=== PATIENT | female | born 1930 | race Caucasian/White ===

== ENCOUNTER 2017-08-25 04:27 | Observation (INO) | payer MEDICARE ==
--- NOTE | 2017-08-25 04:50 | ED PDOC ---
Arrival/HPI - General Chief Complaint: Palpitations Time Seen by Provider: 08/25/17 04:33 Historian: Patient - History of Present Illness Narrative History of Present Illness (Text): 08/25/17 04:50 Linnea Gonzalez is an 86 year old female, whose past medical history includes hypertension, hypothyroidism, and goiter, who presents to the Emergency department complaining of palpitations. Patient states she has been experiencing intermittent racing heart rate for the past 3-4 days. Patient states her hear rate goes up to 110 bpm at times and she became concerned, prompting her visit to the Emergency department. Patient states she took Aspirin 81mg prior to arrival. Patient denies any fever, chills, chest pain, shortness of breath, nausea, vomiting, diarrhea, urinary symptoms, back pain, neck pain, headache, dizziness, or any other complaints. Symptom Onset: Gradual Symptom Course: Unchanged Activities at Onset: Light Context: Home Past Medical History - Provider Review Nursing Documentation Reviewed: Yes - Infectious Disease Hx of Infectious Diseases: None - Reproductive Menopause: Yes - Cardiac Hx Cardiac Arrhythmia: Yes Hx Hypertension: Yes - Pulmonary Hx Respiratory Disorders: No - Neurological Hx Neurological Disorder: No - HEENT Hx HEENT Disorder: No - Renal Hx Renal Disorder: No - Endocrine/Metabolic Hx Hyperthyroidism: Yes - Hematological/Oncological Hx Blood Disorders: No - Integumentary Hx Dermatological Disorder: No - Musculoskeletal/Rheumatological Hx Musculoskeletal Disorders: No - Gastrointestinal Hx Gastrointestinal Disorders: No - Genitourinary/Gynecological Hx Genitourinary Disorders: No - Psychiatric Hx Psychophysiologic Disorder: No Hx Depression: No Hx Emotional Abuse: No Hx Physical Abuse: No Hx Substance Use: No - Suicidal Assessment Feels Threatened In Home Enviroment: No Family/Social History - Physician Review Nursing Documentation Reviewed: Yes Family/Social History: Unknown Family HX Smoking Status: Never Smoked Hx Alcohol Use: No Hx Substance Use: No Allergies/Home Meds Allergies/Adverse Reactions: Allergies No Known Allergies Allergy (Verified 08/25/17 04:37) Home Medications: Home Meds Medication Instructions Recorded Confirmed Metoprolol Succinate [Metoprolol 1 tab PO BID 08/01/13 08/25/17 Succinate] Verapamil [Verapamil] 1 tab PO DAILY 08/01/13 08/25/17 Furosemide [Lasix] 20 mg PO DAILY 08/25/17 08/25/17 Methimazole [Tapazole] 5 mg PO DAILY 08/25/17 08/25/17 Review of Systems - Physician Review All systems were reviewed & negative as marked: Yes - Review of Systems Constitutional: Normal. absent: Fevers Eyes: Normal ENT: Normal Respiratory: Normal. absent: SOB, Cough Cardiovascular: Palpitations Gastrointestinal: Normal. absent: Abdominal Pain, Diarrhea, Nausea, Vomiting Genitourinary Female: Normal. absent: Dysuria, Frequency, Hematuria, Urine Output Changes Musculoskeletal: Normal. absent: Back Pain, Neck Pain Skin: Normal. absent: Rash Neurological: Normal. absent: Headache, Dizziness Endocrine: Normal Hemo/Lymphatic: Normal Psychiatric: Normal Physical Exam Vital Signs Reviewed: Yes Vital Signs Temp Pulse Resp BP Pulse Ox 08/25/17 05:56 98.8 F 94 H 20 128/70 94 L Temperature: Afebrile Blood Pressure: Normal Pulse: Regular Respiratory Rate: Normal Appearance: Positive for: Well-Appearing, Non-Toxic, Comfortable Pain Distress: None Mental Status: Positive for: Alert and Oriented X 3 - Systems Exam Head: Present: Atraumatic, Normocephalic Pupils: Present: PERRL Extroacular Muscles: Present: EOMI Conjunctiva: Present: Normal Mouth: Present: Moist Mucous Membranes Neck: Present: Normal Range of Motion, Other (Goiter). No: Meningeal Signs, MIDLINE TENDERNESS, Paraspinal Tenderness Respiratory/Chest: Present: Good Air Exchange, Decreased Breath Sounds (left lung field). No: Respiratory Distress, Accessory Muscle Use Cardiovascular: Present: Regular Rate and Rhythm, Normal S1, S2. No: Murmurs Abdomen: Present: Normal Bowel Sounds. No: Tenderness, Distention, Peritoneal Signs Back: Present: Normal Inspection. No: CVA Tenderness, Midline Tenderness, Paraspinal Tenderness Upper Extremity: Present: Normal Inspection. No: Cyanosis, Edema Lower Extremity: Present: Normal Inspection. No: Edema Neurological: Present: GCS=15, CN II-XII Intact, Speech Normal Skin: Present: Warm, Dry, Normal Color. No: Rashes Psychiatric: Present: Alert, Oriented x 3, Normal Insight, Normal Concentration Medical Decision Making ED Course and Treatment: 08/25/17 04:50 Impression: 86 year old female complaining of palpitations. Plan: -- EKG -- Chest X-ray -- Labs, cardiac enzymes -- Reassess and disposition Progress Notes: Reviewed EKG, sinus tachycardia at 103 bpm. Septal infarct. Non-specific ST/T wave changes. 08/25/17 06:13 Chest X-ray shows: LIMITATIONS: The patient's head obscures a large part of the upper chest. LUNGS: Visualized portions of the lungs appear grossly clear, although note that the lungs are incompletely seen on this exam. PLEURAL SPACE: Large area of dense opacity in the left lung, highly suspicious for a large left pleural effusion. No evidence of significant right pleural effusion. HEART: Heart size is difficult to assess because of the left pleural effusion. MEDIASTINUM: Mediastinum is poorly seen. BONES/JOINTS: No definite acute bony abnormality visualized. IMPRESSION: - Limited exam, as described. - Large left pleural effusion. Cannot rule out underlying pneumonia or malignancy in the left lung. - See above for remaining findings. 08/25/17 06:38 Case was d/w who accepted to her service./ on consult.CT Chest to follow. - Lab Interpretations Lab Results: 08/25/17 05:18 08/25/17 05:18 Lab Results 08/25/17 05:18: WBC 5.4, RBC 4.61, Hgb 13.2, Hct 41.7, MCV 90.5, MCH 28.6, MCHC 31.7, RDW 14.0, Plt Count 259, MPV 9.8 08/25/17 05:18: Sodium 137, Potassium 4.3, Chloride 100, Carbon Dioxide 26, Anion Gap 15, BUN 14, Creatinine 0.8, Est GFR ( Amer) > 60, Est GFR (Non- Af Amer) > 60, Random Glucose 116 H, Calcium 8.9, Total Bilirubin 0.5, AST 32, ALT 30, Alkaline Phosphatase 56, Lactate Dehydrogenase 501, Total Creatine Kinase 64, Troponin I < 0.01 D, NT-Pro-B Natriuret Pep 521 H, Total Protein 6.9 , Albumin 3.8, Globulin 3.2, Albumin/Globulin Ratio 1.2 08/25/17 05:18: PT 12.4, INR 1.08, APTT 30.9 I have reviewed the lab results: Yes - RAD Interpretation Radiology Orders: 08/25/17 05:01 CHEST PORTABLE [RAD] [employer] Operations Manager: Radiologist - EKG Interpretation Interpreted by ED Physician: Yes Type: 12 lead EKG - Medication Orders Current Medication Orders: Discontinued Medications Furosemide (Lasix) 40 mg IVP ONCE ONE Stop: 08/25/17 06:30 - Scribe Statement The provider has reviewed the documentation as recorded by the Nora Clark Provider Scribe Attestation: All medical record entries made by the Scribe were at my direction and personally dictated by me. I have reviewed the chart and agree that the record accurately reflects my personal performance of the history, physical exam, medical decision making, and the department course for this patient. I have also personally directed, reviewed, and agree with the discharge instructions and disposition. Disposition/Present on Arrival - Present on Arrival Any Indicators Present on Arrival: No History of DVT/PE: No History of Uncontrolled Diabetes: No Urinary Catheter: No History of Decub. Ulcer: No History Surgical Site Infection Following: None - Disposition Have Diagnosis and Disposition been Completed?: Yes Diagnosis: Heart palpitations, Pleural effusion Disposition: HOSPITALIZED Disposition Time: 06:31 Patient Plan: Observation Patient Problems: Current Active Problems Problem Status Onset Heart palpitations Acute Pleural effusion Acute Condition: STABLE Forms: [employer]
[2017-08-25 05:33] LABS: HEMOGLOBIN 13.2 g/dL (12.0-16.0); MEAN CELL VOLUME 90.5 fl (80.0-105.0); MEAN CORPUSCULAR HEMOGLOBIN 28.6 pg (25.0-35.0); MEAN CORPUSCULAR HGB CONC 31.7 g/dl (31.0-37.0); MEAN PLATELET VOLUME 9.8 fl (7.0-11.0); RBC 4.61 10^6/uL (3.5-6.1); WHITE BLOOD COUNT 5.4 10^3/ul (4.5-11.0)
[2017-08-25 05:49] LABS: INR 1.08 (0.93-1.08); PARTIAL THROMBOPLASTIN TIME 30.9 Seconds (25.1-36.5); PROTHROMBIN TIME 12.4 SECONDS (9.4-12.5)
[2017-08-25 06:03] LABS: ALB/GLOB RATIO 1.2 (1.1-1.8); ALBUMIN 3.8 g/dL (3.0-4.8); ALT/SGPT 30 U/L (7-56); AST/SGOT 32 U/L (14-36); BLOOD UREA NITROGEN 14 mg/dL (7-21); CALCIUM 8.9 mg/dL (8.4-10.5); GFR AFRICAN-AMERICAN > 60; GFR NON-AFRICAN AMERICAN > 60
--- NOTE | 2017-08-25 06:12 | RAD ---
EXAM: XR Chest, 1 View EXAM DATE/TIME: 08/25/2017 5:01 AM CLINICAL HISTORY: 86 years old, female; Signs and symptoms; Shortness of breath; Additional info: Palpitations TECHNIQUE: Frontal view of the chest. COMPARISON: No relevant prior studies available. FINDINGS: LIMITATIONS: The patient's head obscures a large part of the upper chest. LUNGS: Visualized portions of the lungs appear grossly clear, although note that the lungs are incompletely seen on this exam. PLEURAL SPACE: Large area of dense opacity in the left lung, highly suspicious for a large left pleural effusion. No evidence of significant right pleural effusion. HEART: Heart size is difficult to assess because of the left pleural effusion. MEDIASTINUM: Mediastinum is poorly seen. BONES/JOINTS: No definite acute bony abnormality visualized. IMPRESSION: - Limited exam, as described. - Large left pleural effusion. Cannot rule out underlying pneumonia or malignancy in the left lung. - See above for remaining findings.
[2017-08-25 06:17] LABS: B-TYPE NATRIURETIC PEPTIDE 521 pg/mL (0-450); TROPONIN I < 0.01 ng/mL
[2017-08-25 06:41] LABS: FREE T4 0.66 ng/dL (0.78-2.19)
--- NOTE | 2017-08-25 07:44 | CT ---
EXAM: CT Chest Without Intravenous Contrast EXAM DATE/TIME: 08/25/2017 6:41 AM CLINICAL HISTORY: 86 years old, female; Signs and symptoms; Shortness of breath; Additional info: Large left pleural effusion TECHNIQUE: Axial computed tomography images of the chest without intravenous contrast. All CT scans at this facility use one or more dose reduction techniques, viz.: automated exposure control; ma/kV adjustment per patient size (including targeted exams where dose is matched to indication; i.e. head); or iterative reconstruction technique. Coronal and sagittal reformatted images were created and reviewed. COMPARISON: Recent chest radiographs of 2017-08-25, 5:18 AM FINDINGS: LIMITATIONS: Moderate respiratory motion artifact. LUNGS: Dense consolidation in the left lung, associated with air bronchograms. This could represent diffuse compressive atelectasis of the left lung, related to the large left pleural effusion, however, an underlying pneumonia is difficult to exclude. Right lung appears clear, allowing for motion artifact, with no evidence of a large right-sided infiltrate, diffuse pulmonary nodules, or a large spiculated lung mass. The portions of the left lung that are aerated appear grossly clear as well. PLEURAL SPACE: Large left pleural effusion. This appears mildly loculated/complex. No pneumothorax is seen. No evidence of significant right pleural effusion. HEART: No evidence of significant pericardial effusion. THYROID: Very large, heterogeneous masslike area of soft tissue is seen in the thoracic inlet region, which extends into the superior mediastinum on the right. This measures at least 16 x 14 cm. It is heterogeneous in density, and contains multiple scattered calcifications. It overall has well defined margins. It encircles the upper trachea and compresses it. Findings are highly suspicious for a massive thyroid goiter. BONES/JOINTS: No evidence of diffuse bony metastatic disease. SOFT TISSUES: No acute abnormality of the visualized soft tissues is seen. VASCULATURE: Exam is nondiagnostic for aortic dissection, secondary to unenhanced technique. LYMPH NODES: No evidence of diffuse lymphadenopathy. INTRAPERITONEAL SPACE: In the upper abdomen, there is irregular soft tissue density seen in the anterior fat, which is highly suspicious for omental/peritoneal metastases. IMPRESSION: - Large left pleural effusion, which appears mildly complex/loculated. - Findings in the upper abdomen which are highly suspicious for omental/peritoneal metastatic disease. This finding could be further evaluated with a dedicated CT of the abdomen and pelvis. - Findings highly suspicious for a massive thyroid goiter, measuring at least 16 cm in size. This encircles and compresses the upper trachea. - See above for remaining findings.
--- NOTE | 2017-08-25 10:55 | CARD ---
APPROVED REPORT EKG Measurement Heart [id number] <Conclusion> Sinus tachycardia Low voltage QRS Septal infarct, age undetermined Abnormal ECG
[2017-08-25 12:41] VITALS: O2SAT 97
[2017-08-25] MEDS ORDERED: Verapamil 120 mg ER Tab PO SCH (13:00)
[2017-08-25] MEDS: methIMAzole 5 MG TAB PO SCH (13:56)
[2017-08-25 16:30] VITALS: BMI 34.4
[2017-08-25] MEDS ORDERED: Pneumococcal 23-Valent Vaccine IM ONE (16:30)
[2017-08-25] MEDS ORDERED: Influenza Vaccine 60 mcg/0.5 mL SYR (4YR UP) IM ONE (16:30)
[2017-08-25] MEDS: Metoprolol Succinate 25 mg XL Tab PO SCH ×2 (17:42→22:25)
[2017-08-25] MEDS ORDERED: Metoprolol Succinate 25 mg XL Tab PO SCH (18:00)
--- NOTE | 2017-08-26 02:29 | HP ---
HISTORY OF PRESENT ILLNESS: The patient is an 86-year-old came to Emergency Room because of palpitation, mild shortness of breath, and complain of feeling a little lightheaded. The patient has multiple medical problems. She denies any fever or chills. No nausea or vomiting. No diarrhea. Cannot lay flat because of goiter and palpitation. PAST MEDICAL HISTORY: Significant for: 1. History of hyperthyroidism, currently on Tapazole, has large goiter. 2. Hypertension. 3. Hyperlipidemia. ALLERGIES: SHE IS NOT ALLERGIC TO ANY MEDICINES. MEDICATIONS AT HOME: She is on Tapazole 5 mg daily, Lasix 20 mg daily, metoprolol 25 twice a day, and verapamil 120 mg daily. SOCIAL HISTORY: Denies smoking or drinking. REVIEW OF SYSTEMS: Significant for: NECK: Large goiter. HEENT: Nonicteric sclerae. [place] conjunctivae. LUNGS: Bilateral lung diffusely decreased breath sound left more than the right. HEART: S1 and S2 audible. ABDOMEN: Soft, obese, and nontender. No rebound. No guarding. NEUROLOGIC: She is awake, alert, oriented, and able to communicate. LABORATORY DATA: WBC 5.4, hemoglobin 13, hematocrit 41, and platelet of 259. PT 12.4 and INR 1.08. Sodium 137, potassium 4.3, chloride 100, CO2 of 26, BUN 14, creatinine 0.8, and blood sugar of 116. BNP 521. T4 is 0.66. TSH is 0.04. CT scan of the chest was done that shows there is a large left pleural effusion, which appears mildly complex, loculated finding in the upper abdomen or highly suspicious for omental and peritoneal metastases, this finding could be further evaluated with CT of the abdomen and pelvis. ASSESSMENT: 1. Left pleural effusion. 2. Dysphagia secondary to goiter. 3. History of hyperthyroidism. 4. Hypertension. 5. Hyperlipidemia. PLAN: We will admit the patient on telemetry. We will diurese the patient. We will start her on verapamil. She has been started on beta-liat. Echocardiogram has been ordered. Dr. Sebastian Pennington was consulted, but the patient refused thoracentesis. We will order for CT of the abdomen and pelvis in a.m. because the patient does not want to get anything done without being discussed with her. We will followup her electrolyte and CBC in a.m. Diane Owen MD [facility] # [id number]
--- NOTE | 2017-08-26 05:58 | CON ---
DATE: 08/25/2017 PULMONARY CONSULTATION REFERRING PHYSICIAN: Diane Owen MD REASON FOR CONSULTATION: Cough, shortness of breath, upper airway obstruction, has complex left pleural effusion. HISTORY OF PRESENT ILLNESS: This is an 86-year-old female with past medical history significant for hypertension, hyperthyroid, huge goiter compressing the upper airway, cannot sleep flat, usually sleeps sitting up. Few days ago, she was seen at [facility] with leg swelling, given some Lasix, felt better. Now, comes into ER with tachypnea and tachycardia. Denying any headache. No fever, no chills. No hemoptysis. No hematemesis. No hematuria. No diarrhea. Leg swelling is better. PAST MEDICAL HISTORY: Large goiter, hyperthyroid, hypertension. FAMILY HISTORY: No significant cardiopulmonary disease reported. SOCIAL HISTORY: Nonsmoker, nondrinker. ALLERGIES: None known. MEDICATIONS: She is on Calan SR 120 mg daily, potassium 20 mEq daily, Lasix 40 mg IV twice a day, Tapazole 5 mg daily, Toprol XL 25 mg twice a day. REVIEW OF SYSTEMS: No headache. No rhinitis. Has upper airway obstruction, cannot lie flat, coughing every few minutes to clear her throat. Huge goiter. PHYSICAL EXAMINATION LUNGS: Has decreased breath sounds in the left lung. Scattered rhonchi. HEART: S1 and S2. ABDOMEN: Soft, nontender, nondistended. EXTREMITIES: There is no edema. NEUROLOGIC: Awake, alert, and follows simple commands. LABORATORY DATA: Shows hemoglobin 13.2, hematocrit 41.7, WBC of 5.4, platelets is 259. INR 1.08, PTT is 31. Sodium 137, potassium 4.3, chloride 100, bicarbonate 26, BUN 14, creatinine 0.8, glucose 116, calcium 8.9, total bili 0.45, AST 32, ALT 30, alkaline phosphatase is 56. ProBNP 521, troponin less than 0.01, albumin 3.8. T4 free is 0.6. TSH is 0.04. CAT scan of the chest is done, which shows a large left pleural effusion that seems loculated and a complex effusion. Also upper abdomen of highly suspicious for omental/peritoneal metastasis disease. There is a massive thyroid goiter which is about 16 cm of size. This encircles and compresses the upper trachea. IMPRESSION AND PLAN: Pending respiratory failure secondary to huge goiter compressing the upper trachea. The patient cannot lie flat, sleeping sitting up, also has omentum involvement with complex left pleural effusion, has to rule out malignancy. Other issues, has hypertension, hyperthyroidism with huge goiter. I had a long discussion with the patient, at least 6 of the siblings at her bedside. The patient understands the complexity of her disease; even before I saw her, she refused to do thoracentesis when Dr. Pennington approached her. I had a long discussion about the risk-benefit ratio. She claims she is 86 years old, does not want to know if she has a cancer, will not want to go through the treatment, why should do the testing. So, she has point, probably palliative consult should be called. The patient should be made DNR and DNI if she wishes to pursue that direction. She is willing to try BiPAP for me. I will place her on BiPAP 12/6 with 35% oxygen while sleeping, that may make her a little more comfortable. Understands risk-benefit ratio. We will speak to her again about further investigation and workup in the morning. Thank you and we will follow with you. Judith Tipton MD
[2017-08-26 06:49] LABS: BASO # 0.02 K/mm3 (0.0-2.0); BASO % 0.3 % (0.0-3.0); EOS % 0.2 % (1.5-5.0); GRAN # 3.95 (1.4-6.5); GRAN % 64.2 % (50.0-68.0); HEMOGLOBIN 12.6 g/dL (12.0-16.0); LYMPH # 1.3 (1.2-3.4); LYMPH % 21.6 % (22.0-35.0); MEAN CELL VOLUME 91.3 fl (80.0-105.0); MEAN CORPUSCULAR HEMOGLOBIN 28.3 pg (25.0-35.0); MEAN PLATELET VOLUME 10.4 fl (7.0-11.0); MONO # 0.8 (0.1-0.6); MONO % 13.7 % (1.0-6.0); RBC 4.46 10^6/uL (3.5-6.1); RED CELL DISTRIBUTION WIDTH 14.3 % (11.5-14.5); WHITE BLOOD COUNT 6.2 10^3/ul (4.5-11.0)
[2017-08-26 07:22] LABS: ALB/GLOB RATIO 1.3 (1.1-1.8); ALBUMIN 3.9 g/dL (3.0-4.8); ALT/SGPT 34 U/L (7-56); AST/SGOT 45 U/L (14-36); BLOOD UREA NITROGEN 18 mg/dL (7-21); CALCIUM 9.2 mg/dL (8.4-10.5); GFR AFRICAN-AMERICAN > 60; GFR NON-AFRICAN AMERICAN 59
--- NOTE | 2017-08-26 08:56 | CON ---
DATE: 08/25/2017 CARDIOLOGY CONSULTATION HISTORY OF PRESENT ILLNESS: The patient is an 86-year-old woman, who presents with palpitations for 2 days. The patient's past medical history is notable for history of goiter for many years, in which she has refused any surgical intervention. The patient has been euthyroid this entire time. She has refused any cardiac testing in the past. Currently, the patient is on beta-blockers as well as verapamil for palpitations. She was placed on Lasix because of her symptoms consistent with CHF. SOCIAL HISTORY: The patient does not smoke. REVIEW OF SYSTEMS: A 14-point review of systems was reviewed in detail. Other than dyspnea and palpitations, there were no other cardiac symptomatology. PHYSICAL EXAMINATION: VITAL SIGNS: Blood pressure 138/70, heart rate is sinus rhythm in the 90s. NECK: Negative JVD. There is marked goiter noted. LUNGS: Without rales. HEART: S1, S2. EXTREMITIES: Without edema. LABORATORY DATA AND IMAGING: EKG shows nonspecific ST-T changes. TSH is 0.04, free T4 is 0.66. ProBNP is 521. Hemoglobin is within normal limits. IMPRESSION: 1. Palpitations. 2. Marked goiter. 3. Large pleural effusion. 4. Coronary artery disease. Given these findings, we will start IV Lasix. We will obtain an echocardiogram. We will need to rule out peritoneal metastatic disease. We will obtain GI consultation. Sebastian Nicolas MD
[2017-08-26] MEDS ORDERED: Verapamil 120 mg ER Tab PO SCH (10:00)
[2017-08-26] MEDS ORDERED: Potassium Chloride 20 mEq ER Tab PO SCH (10:00)
[2017-08-26] MEDS: Metoprolol Succinate 25 mg XL Tab PO SCH (10:18)
[2017-08-26] MEDS: methIMAzole 5 MG TAB PO SCH (10:18)
[2017-08-26 12:00] VITALS: BP 122/73; PULSE 90; RESP 20; TEMP 97.6
--- NOTE | 2017-08-26 14:05 | PN ---
DATE: 08/26/2017 CARDIOLOGY FOLLOWUP SUBJECTIVE: The patient is without shortness of breath at rest. PHYSICAL EXAMINATION: VITAL SIGNS: Blood pressure is 135/72, the heart rate is in the 90s, normal sinus rhythm. NECK: Negative JVD. LUNGS: Decreased breath sounds. HEART: Reveal S1, S2. EXTREMITIES: Without change. LABORATORY DATA: Troponins are negative x2. Potassium is 4.1. Hemoglobin is 12.6. IMPRESSION: 1. Density and pleural effusion in the left lung. 2. Massive goiter, which is chronic. 3. Dyspnea. 4. Hypertension. PLAN: Given these findings, I have sat down with the patient and daughter and talked about potentials for cancer as well as other causes of her pleural effusion. She refuses further treatment. She understands the risks. The patient is willing to take only medications at home. We will discontinue telemetry today. The patient will be discharged today with followup as an outpatient. Sebastian Nicolas MD
--- NOTE | 2017-08-27 09:43 | DS ---
HISTORY OF PRESENT ILLNESS: The patient is an 86-year-old, seen and examined who was admitted yesterday because of increasing shortness of breath, scanty cough, and palpitation. She was found to have a large left pleural effusion. She was offered thoracentesis, but the patient refused. She was also offered to have fluid aspiration to rule out underlying malignancy versus congestive heart failure and pleural effusion, but the patient states given her age, she did not want to go into any intervention and she is requesting to be discharged. PHYSICAL EXAMINATION GENERAL: On examination today, she is awake and alert, able to communicate. Mild shortness of breath. VITAL SIGNS: She is afebrile, pulse 90, respirations 20, blood pressure 122/73. LUNGS: Bilateral decreased breath sounds, left more than the right. HEART: S1 and S2 audible. ABDOMEN: Soft, obese, nontender. No rebound. No guarding. NEUROLOGIC: The patient is awake and alert, able to communicate. The patient has a large goiter occupying her front of the neck. LABORATORY EXAM: WBC 6.2, hemoglobin 12, hematocrit 40, platelets 271,000. PT 12.4 and INR 1.08. Chemistry: Sodium 138, potassium 4.1, chloride 100, CO2 26, BUN 18, creatinine 0.9, blood sugar of 114. ASSESSMENT 1. Hyperthyroidism. 2. Large pleural effusion. 3. Congestive heart failure. 4. Hypertension. PLAN: The patient is requesting to be discharged. I discussed with Dr. Nicolas who wants to increase her Lasix to 40 along with potassium 10 mEq daily. She will resume her other medications that include Tapazole 5 mg daily, metoprolol 25 twice a day, and verapamil 120 daily. She will follow with her PMD and Diane Owen MD
[2017-08-27] MEDS ORDERED: Potassium Chloride 20 mEq/15 ml LIQ UD PO SCH (10:00)
== END 2017-08-26 14:54 | disposition home or self-care (01) ==
LOC: ED 04:27 → ERH 06:31 → 2RSO 13:00
PROVIDERS: ADMIT Internal Medicine; ATTEND Internal Medicine
DX: J90 Pleural effusion, not elsewhere classified (principal); E05.00 Thyrotoxicosis with diffuse goiter without thyrotoxic crisis or storm; I11.0 Hypertensive heart disease with heart failure; I50.9 Heart failure, unspecified; I25.10 Atherosclerotic heart disease of native coronary artery without angina pectoris; E78.5 Hyperlipidemia, unspecified; E03.9 Hypothyroidism, unspecified; R13.10 Dysphagia, unspecified; Z79.82 Long term (current) use of aspirin; R40.2412 Glasgow coma scale score 13-15, at arrival to emergency department; R00.0 Tachycardia, unspecified; R00.2 Palpitations
CPT/HCPCS: 36415; 71045; 71250; 80053; 82550; 83615; 83880; 84439; 84443; 84484; 85025; 85027; 85610; 85730; 92610; 93005; 94660; 96374; 99284; G0378; G8996; G8997; G8998; J1940

== ENCOUNTER 2017-08-30 19:39 | Inpatient (IN) | payer MEDICARE ==
[2017-08-30 19:39] VITALS: BMI 34.4
[2017-08-30 20:41] LABS: VENOUS BLOOD GAS PO2 45 mm/Hg (30-55); VENOUS BLOOD PH 7.34 (7.32-7.43)
[2017-08-30 20:42] LABS: BASO # 0.01 K/mm3 (0.0-2.0); BASO % 0.1 % (0.0-3.0); GRAN # 10.25 (1.4-6.5); GRAN % 85.3 % (50.0-68.0); HEMOGLOBIN 13.6 g/dL (12.0-16.0); LYMPH # 0.7 (1.2-3.4); LYMPH % 5.4 % (22.0-35.0); MEAN CELL VOLUME 89.9 fl (80.0-105.0); MEAN CORPUSCULAR HEMOGLOBIN 29.1 pg (25.0-35.0); MEAN CORPUSCULAR HGB CONC 32.4 g/dl (31.0-37.0); MEAN PLATELET VOLUME 10.5 fl (7.0-11.0); MONO # 1.1 (0.1-0.6); MONO % 9.2 % (1.0-6.0); RBC 4.67 10^6/uL (3.5-6.1); RED CELL DISTRIBUTION WIDTH 13.8 % (11.5-14.5)
[2017-08-30 20:52] LABS: ALB/GLOB RATIO 1.2 (1.1-1.8); ALT/SGPT 45 U/L (7-56); AST/SGOT 40 U/L (14-36); BLOOD UREA NITROGEN 36 mg/dL (7-21); CALCIUM 9.8 mg/dL (8.4-10.5); GFR AFRICAN-AMERICAN > 60; GFR NON-AFRICAN AMERICAN 52
[2017-08-30 20:55] LABS: INR 1.26 (0.93-1.08); PARTIAL THROMBOPLASTIN TIME 25.3 Seconds (25.1-36.5); PROTHROMBIN TIME 14.4 SECONDS (9.4-12.5)
[2017-08-30 20:57] LABS: B-TYPE NATRIURETIC PEPTIDE 772 pg/mL (0-450); TROPONIN I 0.02 ng/mL
--- NOTE | 2017-08-30 21:16 | ED PDOC ---
Arrival/HPI - General Chief Complaint: Shortness Of Breath Time Seen by Provider: 08/30/17 19:49 Historian: Patient - History of Present Illness Narrative History of Present Illness (Text): 08/30/17 19:45 Linnea Gonzalez is an 86 year old female, whose past medical history includes hypertension, hypothyroidism, and large goiter, who presents to the Emergency department complaining of gradually worsening shortness of breath for 2 days. Patient was admitted on 08/25/2017, seen by pulmonology, but refused thoracentesis for left pleural effusion. Patient also notes she is unable to lie flat secondary to large goiter. Patient denies any fever, chills, chest pain , nausea, vomiting, neck pain, headache, dizziness, or any other complaints. Time/Duration: < week (2 days) Symptom Onset: Gradual Symptom Course: Unchanged Activities at Onset: Light Context: Home Past Medical History - Provider Review Nursing Documentation Reviewed: Yes - Infectious Disease Hx of Infectious Diseases: None - Cardiac Hx Cardiac Disorders: Yes Hx Cardiac Arrhythmia: Yes Hx Hypertension: Yes - Pulmonary Hx Respiratory Disorders: No - Neurological Hx Neurological Disorder: No - HEENT Hx HEENT Disorder: No - Renal Hx Renal Disorder: No - Endocrine/Metabolic Hx Endocrine Disorders: Yes Hx Hyperthyroidism: Yes - Hematological/Oncological Hx Blood Disorders: No - Integumentary Hx Dermatological Disorder: No - Musculoskeletal/Rheumatological Hx Musculoskeletal Disorders: No Hx Falls: Yes - Gastrointestinal Hx Gastrointestinal Disorders: No - Genitourinary/Gynecological Hx Genitourinary Disorders: No - Psychiatric Hx Psychophysiologic Disorder: No Hx Depression: No Hx Emotional Abuse: No Hx Physical Abuse: No Hx Substance Use: No - Suicidal Assessment Feels Threatened In Home Enviroment: No Family/Social History - Physician Review Nursing Documentation Reviewed: Yes Family/Social History: Unknown Family HX Smoking Status: Never Smoked Hx Alcohol Use: No Hx Substance Use: No Allergies/Home Meds Allergies/Adverse Reactions: Allergies No Known Allergies Allergy (Verified 08/30/17 19:51) Home Medications: Home Meds Medication Instructions Recorded Confirmed Metoprolol Succinate [Metoprolol 1 tab PO BID 08/01/13 08/30/17 Succinate] Verapamil [Verapamil] 1 tab PO DAILY 08/01/13 08/30/17 Methimazole [Tapazole] 5 mg PO DAILY 01/30/18 02/04/18 Review of Systems - Physician Review All systems were reviewed & negative as marked: Yes - Review of Systems Constitutional: Normal. absent: Fevers Eyes: Normal ENT: Normal Respiratory: SOB. absent: Cough Cardiovascular: Normal. absent: Chest Pain Gastrointestinal: Normal. absent: Abdominal Pain, Diarrhea, Nausea, Vomiting Genitourinary Female: Normal. absent: Dysuria, Frequency, Hematuria, Urine Output Changes Musculoskeletal: Normal. absent: Back Pain, Neck Pain Skin: Normal. absent: Rash Neurological: Normal. absent: Headache, Dizziness Endocrine: Normal Hemo/Lymphatic: Normal Psychiatric: Normal Physical Exam Vital Signs Reviewed: Yes Vital Signs Temp Pulse Resp BP Pulse Ox 08/31/17 00:16 95 H 180/95 H 08/30/17 23:13 103 H 20 160/80 H 97 08/30/17 20:29 22 99 08/30/17 19:52 98.2 F 109 H 22 124/81 98 Temperature: Afebrile Blood Pressure: Normal Pulse: Regular Respiratory Rate: Normal Appearance: Positive for: Well-Appearing, Non-Toxic, Comfortable Pain Distress: None Mental Status: Positive for: Alert and Oriented X 3 Finger Stick Blood Glucose: 165 - Systems Exam Head: Present: Atraumatic, Normocephalic Pupils: Present: PERRL Extroacular Muscles: Present: EOMI Conjunctiva: Present: Normal Mouth: Present: Moist Mucous Membranes Neck: Present: Normal Range of Motion, Other (large goiter) Respiratory/Chest: Present: Decreased Breath Sounds (Decreased breath sounds in left lung field). No: Respiratory Distress, Accessory Muscle Use Cardiovascular: Present: Regular Rate and Rhythm, Normal S1, S2. No: Murmurs Abdomen: Present: Normal Bowel Sounds. No: Tenderness, Distention, Peritoneal Signs Back: Present: Normal Inspection Upper Extremity: Present: Normal Inspection. No: Cyanosis, Edema Lower Extremity: Present: Normal Inspection. No: Edema Neurological: Present: GCS=15, CN II-XII Intact, Speech Normal Skin: Present: Warm, Dry, Normal Color. No: Rashes Psychiatric: Present: Alert, Oriented x 3, Normal Insight, Normal Concentration Medical Decision Making ED Course and Treatment: 08/30/17 19:45 Impression: 86 year old female complaining of worsening shortness of breath x2 days. Plan: -- EKG -- Chest X-ray -- Labs, VBG, BNP, cardiac enzymes, blood cultures -- Reassess and disposition Prior Visits: Notes and results from previous visits were reviewed. On 08/25/2017, pt was seen in the Emergency department for palpitations. Pt was offered thoracentesis for left pleural effusion, but refused. Progress Notes: Reviewed EKG, sinus tachycardia at 108 bpm[address] Non-specific ST/T wave changes, 08/30/17 20:30 Chest X-ray reviewed, shows left-sided pleural effusion. 08/30/17 21:[address] Owen, who is aware and agrees with plan. Accepts pt in to her service. 08/30/17 22:[address] Rao, diamond sizer, who is aware and agrees to evaluate patient for possible ICU admission. 08/30/17 23:[address] Rao, present in Emergency department to evaluate. Pt will go to Telemetry observation for pleural effusion under Dr. Owen's service. - Lab Interpretations Lab Results: 08/30/17 20:20 08/30/17 20:20 Lab Results 08/30/17 20:20: Sodium 142, Chloride 101, Potassium 4.4, Carbon Dioxide 24, Anion Gap 22 H, BUN 36 H, Creatinine 1.0, Est GFR ( Amer) > 60, Est GFR ( Non-Af Amer) 52, Random Glucose 180 H, Calcium 9.8, Total Bilirubin 1.2, AST 40 H, ALT 45, Alkaline Phosphatase 67, Lactate Dehydrogenase 622, Total Creatine Kinase 74, Troponin I 0.02 D, NT-Pro-B Natriuret Pep 772 H, Total Protein 7.3, Albumin 4.0, Globulin 3.3, Albumin/Globulin Ratio 1.2 08/30/17 20:20: pO2 45, VBG pH 7.34, VBG pCO2 49.0, VBG HCO3 26.4, VBG Total CO2 27.9, VBG O2 Sat (Calc) 84.0 H, VBG Base Excess 0.0, VBG Potassium 4.5, Sodium 139.0, Chloride 101.0, Glucose 185 H, Lactate 3.0 H, FiO2 21.0, Venous Blood Potassium 4.5 08/30/17 20:20: PT 14.4 H, INR 1.26 H, APTT 25.3 08/30/17 20:20: WBC 12.0 H D, RBC 4.67, Hgb 13.6, Hct 42.0, MCV 89.9, MCH 29.1, MCHC 32.4, RDW 13.8, Plt Count 327, MPV 10.5, Gran % 85.3 H, Lymph % (Auto) 5.4 L, Yates % (Auto) 9.2 H, Eos % (Auto) 0.0 L, Baso % (Auto) 0.1, Gran # 10.25 H, Lymph # (Auto) 0.7 L, Yates # (Auto) 1.1 H, Eos # (Auto) 0.0, Baso # (Auto) 0.01 08/30/17 20:09: POC Glucose (mg/dL) 165 H I have reviewed the lab results: Yes - RAD Interpretation Radiology Orders: 08/30/17 19:57 CHEST PORTABLE [RAD] Stat Sweeper Driver: ED Physician - EKG Interpretation Interpreted by ED Physician: Yes Type: 12 lead EKG - Medication Orders Current Medication Orders: Furosemide (Lasix) 40 mg IVP DAILY [facility] Last Admin: 08/31/17 09:26 Dose: 40 mg MAR Blood Pressure Document 08/31/17 09:26 KM (Rec: 08/31/17 09:26 [place] [id number]) Blood Pressure Blood Pressure (100/60-150/90) 130/85 IVP Administration Document 08/31/17 09:26 KMS (Rec: 08/31/17 09:26 [place] [id number]) Charges for Administration # of IVP Administrations 1 Piperacillin Sod/Tazobactam Sod (Zosyn 3.375 In Ns 100ml) 100 mls @ 200 mls/hr IVPB Q6 [facility] PRN Reason: Protocol Stop: 08/31/17 18:29 Last Admin: 08/31/17 12:00 Dose: 200 mls/hr eMAR Start Stop Document 08/31/17 12:00 KMS (Rec: 08/31/17 12:01 [email or web address]) Intravenous Solution Start Date 08/31/17 Start Time 12:00 End Date 08/31/17 End time 13:00 Total Infusion Time 60 Levalbuterol HCl (Xopenex) 0.63 mg IH TIDRESP [facility] Last Admin: 08/31/17 14:11 Dose: 0.63 mg Methimazole (Tapazole) 5 mg PO DAILY [facility] Last Admin: 08/31/17 09:26 Dose: 5 mg Methylprednisolone (Solu-Medrol) 40 mg IVP Q12 [facility] Last Admin: 08/31/17 12:07 Dose: 40 mg IVP Administration Document 08/31/17 12:07 KMS (Rec: 08/31/17 12:07 [id number] Charges for Administration # of IVP Administrations 1 Metoprolol Succinate (Toprol Xl) 25 mg PO BID [facility] Last Admin: 08/31/17 09:26 Dose: 25 mg MAR Pulse and Blood Pressure Document 08/31/17 09:26 KM (Rec: 08/31/17 09:26 [id number] Pulse Pulse Rate (60-90) 94 Blood Pressure Blood Pressure (100/60-150/90) 130/85 Potassium Chloride (Potassium Chloride Oral Soln) 10 meq PO DAILY [facility] Last Admin: 08/31/17 10:31 Dose: Not Given Non-Admin Reason: Patient Refused Verapamil HCl (Calan Sr Tab) 180 mg PO DAILY [facility] Discontinued Medications Piperacillin Sod/Tazobactam Sod (Zosyn 3.375 In Ns 100ml) 100 mls @ 200 mls/hr IVPB STAT STA PRN Reason: Protocol Stop: 08/30/17 22:02 Last Admin: 08/30/17 21:49 Dose: 200 mls/hr eMAR Start Stop Document 08/30/17 21:49 RD (Rec: 08/30/17 21:49 RD [id number]) Intravenous Solution Start Date 08/30/17 Start Time 21:49 End Date 08/30/17 End time 22:19 Total Infusion Time 30 Metoprolol Succinate (Toprol Xl) 25 mg PO STAT STA Stop: 08/31/17 00:03 Last Admin: 08/31/17 00:16 Dose: 25 mg MAR Pulse and Blood Pressure Document 08/31/17 00:16 RD (Rec: 08/31/17 00:16 RD [id number]) Pulse Pulse Rate (60-90) 95 Blood Pressure Blood Pressure (100/60-150/90) 180/95 Potassium Chloride (Klor-Con 10) 10 meq PO STAT STA Stop: 08/31/17 10:22 Last Admin: 08/31/17 10:32 Dose: 10 meq Verapamil HCl (Calan Sr Tab) 120 mg PO DAILY PETER Verapamil HCl (Calan Sr Tab) 120 mg PO DAILY [facility]ER Last Admin: 08/31/17 09:26 Dose: 120 mg MAR Pulse and Blood Pressure Document 08/31/17 09:26 KMS (Rec: 08/31/17 09:26 KMS [id number]) Pulse Pulse Rate (60-90) 94 Blood Pressure Blood Pressure (100/60-150/90) 130/85 Verapamil HCl (Calan Tab) 80 mg PO ONCE ONE Stop: 08/31/17 10:31 Last Admin: 08/31/17 10:31 Dose: 80 mg MAR Pulse and Blood Pressure Document 08/31/17 10:31 KMS (Rec: 08/31/17 10:32 KMS [id number]) Pulse Pulse Rate (60-90) 125 Blood Pressure Blood Pressure (100/60-150/90) 130/85 - Scribe Statement The provider has reviewed the documentation as recorded by the Nora Clark Provider Scribe Attestation: All medical record entries made by the Scribe were at my direction and personally dictated by me. I have reviewed the chart and agree that the record accurately reflects my personal performance of the history, physical exam, medical decision making, and the department course for this patient. I have also personally directed, reviewed, and agree with the discharge instructions and disposition. Disposition/Present on Arrival - Present on Arrival Any Indicators Present on Arrival: Yes History of DVT/PE: No History of Uncontrolled Diabetes: No Urinary Catheter: No History of Decub. Ulcer: No History Surgical Site Infection Following: None - Disposition Have Diagnosis and Disposition been Completed?: Yes Diagnosis: Pleural effusion Disposition: HOSPITALIZED Disposition Time: 23:45 Condition: FAIR
[2017-08-30] MEDS ORDERED: Piperacillin/Tazobact 3.375 gm 100 ML IVPB STA (21:33)
[2017-08-31] MEDS ORDERED: Metoprolol Succinate 25 mg XL Tab PO STA (00:02)
--- NOTE | 2017-08-31 00:23 | CP.PCM.CON ---
<Carline Clements - Last Filed: 08/31/17 00:20> History of Present Illness - History of Present Illness History of Present Illness: PGY-2 ICU consult note 86 year old female, whose past medical history includes hypertension, hypothyroidism, and large goiter, who presents to the Emergency department complaining of gradually worsening shortness of breath for 2 days. Patient was admitted on 08/25/2017, seen by pulmonology, but refused thoracentesis for left pleural effusion. Patient also notes she is unable to lie flat secondary to large goiter. She also reports difficulty eating , and states that she usually vomits whenever she tries to eat. Patient states that she would like home oxygen to help with the SOB. She states that she does not want any invasive procedures including intubation or thoracentesis. Patient denies any fever, chills, chest pain, neck pain, headache, dizziness, or any other complaints. PMH: hypertension, hypothyroidism, and large goiter PSH: deneis social history deneis allergy: NKDA family: thyriod disease and diabetes Review of Systems - Constitutional Constitutional: Lethargy. absent: Chills, Fever, Headache - EENT Nose/Mouth/Throat: absent: Nasal Congestion, Nasal Discharge - Cardiovascular Cardiovascular: Dyspnea. absent: Chest Pain, Leg Edema - Respiratory Respiratory: Dyspnea. absent: Cough - Gastrointestinal Gastrointestinal: Nausea, Vomiting. absent: Abdominal Pain, Constipation, Diarrhea - Genitourinary Genitourinary: absent: Difficulty Urinating, Pyuria - Musculoskeletal Musculoskeletal: absent: Arthralgias, Numbness, Stiffness - Neurological Neurological: absent: Dizziness, Numbness, Headaches, Syncope - Hematologic/Lymphatic Hematologic: absent: Easy Bleeding, Easy Bruising Past Patient History - Infectious Disease Hx of Infectious Diseases: None - Past Social History Smoking Status: Never Smoked - CARDIAC Hx Cardiac Disorders: Yes Hx Cardia Arrhythmia: Yes Hx Hypertension: Yes - PULMONARY Hx Respiratory Disorders: No - NEUROLOGICAL Hx Neurological Disorder: No - HEENT Hx HEENT Problems: No - RENAL Hx Chronic Kidney Disease: No - ENDOCRINE/METABOLIC Hx Endocrine Disorders: Yes Hx Hyperthyroidism: Yes - HEMATOLOGICAL/ONCOLOGICAL Hx Blood Disorders: No - INTEGUMENTARY Hx Dermatological Problems: No - MUSCULOSKELETAL/RHEUMATOLOGICAL Hx Musculoskeletal Disorders: No Hx Falls: Yes - GASTROINTESTINAL Hx Gastrointestinal Disorders: No - GENITOURINARY/GYNECOLOGICAL Hx Genitourinary Disorders: No - PSYCHIATRIC Hx Psychophysiologic Disorder: No Hx Depression: No Hx Emotional Abuse: No Hx Physical Abuse: No Hx Substance Use: No - SURGICAL HISTORY Hx Surgeries: No Meds Allergies/Adverse Reactions: Allergies Allergy/AdvReac Type Severity Reaction Status Date / Time No Known Allergies Allergy Verified 08/30/17 19:51 - Medications Medications: Current Medications Furosemide (Lasix) 40 mg IVP DAILY [facility] Methimazole (Tapazole) 5 mg PO DAILY [facility] Metoprolol Succinate (Toprol Xl) 25 mg PO BID [facility] Potassium Chloride (Potassium Chloride Oral Soln) 10 meq PO DAILY [facility] Verapamil HCl (Calan Sr Tab) 120 mg PO DAILY [facility] Physical Exam - Constitutional Appears: No Acute Distress - Head Exam Head Exam: ATRAUMATIC, NORMAL INSPECTION, NORMOCEPHALIC - Eye Exam Eye Exam: Normal appearance - ENT Exam ENT Exam: Mucous Membranes Moist - Neck Exam Additional comments: large goiter - Respiratory Exam Respiratory Exam: Decreased Breath Sounds (left side), Rhonchi - Cardiovascular Exam Cardiovascular Exam: Tachycardia, +S1, +S2. absent: Systolic Murmur - GI/Abdominal Exam GI & Abdominal Exam: Normal Bowel Sounds, Soft. absent: Distended, Firm, Guarding, Tenderness - Extremities Exam Extremities exam: Positive for: normal inspection. Negative for: pedal edema, tenderness - Neurological Exam Neurological exam: Alert, Oriented x3 - Skin Skin Exam: Dry, Intact, Normal Color, Warm Results - Vital Signs Recent Vital Signs: Last Vital Signs Temp 98.2 F 08/30/17 19:52 Pulse 95 H 08/31/17 00:16 Resp 20 08/30/17 23:13 BP 180/95 H 08/31/17 00:16 Pulse Ox 97 08/30/17 23:13 - Labs Result Diagrams: 08/30/17 20:20 08/30/17 20:20 Assessment & Plan - Assessment and Plan (Free Text) Assessment: 86 year old female, whose past medical history includes hypertension, hypothyroidism, and large goiter, who presents complaining of gradually worsening shortness of breath most like due to pleural effusion and large goiter. Patient is hemodynamically stable. She is refusing ICU admission. Patient will be admitted to [facility], if her condition changes we will reevaluate. <Claudette Rao - Last Filed: 08/31/17 00:29> Meds - Medications Medications: Current Medications Furosemide (Lasix) 40 mg IVP DAILY [facility] Methimazole (Tapazole) 5 mg PO DAILY [facility] Metoprolol Succinate (Toprol Xl) 25 mg PO BID [facility] Potassium Chloride (Potassium Chloride Oral Soln) 10 meq PO DAILY [facility] Verapamil HCl (Calan Sr Tab) 120 mg PO DAILY [facility] Results - Vital Signs Recent Vital Signs: Last Vital Signs Temp 98.2 F 08/30/17 19:52 Pulse 95 H 08/31/17 00:16 Resp 20 08/30/17 23:13 BP 180/95 H 08/31/17 00:16 Pulse Ox 97 08/30/17 23:13 - Labs Result Diagrams: 08/30/17 20:20 08/30/17 20:20 Attending/Attestation - Attestation I have personally seen and examined this patient.: Yes I have fully participated in the care of the patient.: Yes I have reviewed all pertinent clinical information: Yes Notes (Text): 08/31/17 00:27 Agree with consultation note including history, physical examination, assessment and plan. I spoke to patient who wishes that chest compressions and intubation should not be carried out in case of cardiac arrest. Patient also refused to be admitted to ICU.
[2017-08-31 01:02] LABS: VENOUS BLOOD GAS BASE EXCESS -1.1 mmol/L (0.0-2.0); VENOUS BLOOD GAS PO2 70 mm/Hg (30-55); VENOUS BLOOD PH 7.33 (7.32-7.43)
[2017-08-31 06:25] LABS: BASO # 0.01 K/mm3 (0.0-2.0); BASO % 0.1 % (0.0-3.0); GRAN # 9.75 (1.4-6.5); GRAN % 81.3 % (50.0-68.0); LYMPH # 0.8 (1.2-3.4); LYMPH % 6.8 % (22.0-35.0); MEAN CELL VOLUME 90.7 fl (80.0-105.0); MEAN CORPUSCULAR HEMOGLOBIN 28.6 pg (25.0-35.0); MEAN CORPUSCULAR HGB CONC 31.6 g/dl (31.0-37.0); MEAN PLATELET VOLUME 10.8 fl (7.0-11.0); MONO # 1.4 (0.1-0.6); MONO % 11.8 % (1.0-6.0); RBC 4.54 10^6/uL (3.5-6.1); RED CELL DISTRIBUTION WIDTH 14.1 % (11.5-14.5)
[2017-08-31 06:29] LABS: VENOUS BLOOD GAS BASE EXCESS 0.1 mmol/L (0.0-2.0); VENOUS BLOOD GAS PO2 49 mm/Hg (30-55); VENOUS BLOOD PH 7.27 (7.32-7.43)
[2017-08-31 07:45] LABS: T4 7.3 ug/dL (5.5-11.0)
[2017-08-31 07:59] LABS: T3 1.35 ng/mL (0.97-1.69)
[2017-08-31] MEDS: Potassium Chloride 20 mEq/15 ml LIQ UD PO SCH ×2 (09:25→10:31)
[2017-08-31] MEDS: Metoprolol Succinate 25 mg XL Tab PO SCH ×3 (09:26→20:45)
[2017-08-31] MEDS: methIMAzole 5 MG TAB PO SCH (09:26)
--- NOTE | 2017-08-31 09:46 | RAD ---
HISTORY: sob COMPARISON: 08/25/2017 FINDINGS: LUNGS: Complete opacification of the left lung. No change PLEURA: No significant pleural effusion identified, no pneumothorax apparent. CARDIOVASCULAR: Mild cardiomegaly OSSEOUS STRUCTURES: No significant abnormalities. VISUALIZED UPPER ABDOMEN: Normal. OTHER FINDINGS: None. IMPRESSION: Complete opacification of the left lung. No change
[2017-08-31] MEDS ORDERED: Verapamil 120 mg ER Tab PO SCH ×2 (10:00)
[2017-08-31] MEDS ORDERED: Potassium Chloride 10 mEq ER Tab PO STA (10:21)
[2017-08-31 11:02] LABS: VENOUS BLOOD GAS BASE EXCESS -0.7 mmol/L (0.0-2.0); VENOUS BLOOD GAS PO2 44 mm/Hg (30-55); VENOUS BLOOD PH 7.33 (7.32-7.43)
[2017-08-31] MEDS: Piperacillin/Tazobact 3.375 gm 100 ML IVPB SCH ×2 (12:00→17:13)
[2017-08-31] MEDS: MethylPREDNISolone 40 mg Vial IVP SCH ×2 (12:07→22:41)
[2017-08-31] MEDS: Levalbuterol 0.63 MG/3 ML Inhal Soln UD IH SCH ×2 (14:11→19:00)
--- NOTE | 2017-08-31 14:41 | CARD ---
APPROVED REPORT EKG Measurement Heart [id number] <Conclusion> Sinus tachycardia Low voltage ECG Abnormal ECG
--- NOTE | 2017-08-31 22:09 | CON ---
DATE: 08/31/2017 HISTORY OF PRESENT ILLNESS: The patient is a 86-year-old woman who presents with shortness of breath and tachycardia. The patient's past medical history is dominated by a large goiter which she has refused treatment for multiple years. In addition, she was admitted last week with a large pleural effusion which she refused thoracentesis. She was found to be in atrial fibrillation. However, she has difficulty swallowing medications because of her large goiter. In addition, she suffers from hypertension. MEDICATIONS: She is currently on Tapazole. SOCIAL HISTORY: The patient does not smoke. REVIEW OF SYSTEMS: The patient has difficulty swallowing, has difficulty breathing, has difficulty with any exertion. Negative edema noted. PHYSICAL EXAMINATION: VITAL SIGNS: Blood pressure 130/85, heart rates in the 120s, atrial fibrillation. NECK: Negative JVD. LUNGS: Decreased breath sounds bilaterally. HEART: Reveal S1 and S2. EXTREMITIES: Without edema. HEENT: The is a large goiter, which is chronic. EKG shows atrial fibrillation with nonspecific ST-T changes. LABORATORY DATA: Hemoglobin is 13. Chemistries: BUN and creatinine are 36 and 1.0. ProBNP is 772. IMPRESSION: 1. Dyspnea. 2. Dysphagia. 3. Large goiter. 4. Atrial fibrillation. 5. Hypertension. 6. Pleural effusion. PLAN: Given these findings, we will ask Pulmonary come and see her again. The patient and family seemed to agree to the thoracentesis. The patient does not want any consideration for surgical treatment of her large goiter. Sebastian Nicolas MD
--- NOTE | 2017-08-31 22:48 | HP ---
HISTORY OF PRESENT ILLNESS: The patient is an 86-year-old who was recently discharged last week after she was found to have a large left pleural effusion. She was offered thoracentesis, but she declined. Yesterday evening, I got a call from son that she is not feeling well, she is short of breath. She is requesting for oxygen. I advised him to come to emergency room because nothing can be done on Thursday evening. So she was brought in last night for further evaluation. Complained of feeling very week, dizzy, lightheaded, short of breath, cannot lay because of her large goiter occupying all front of her neck, hindering flexion of her neck. Denies any fever or chills. Does complain of cough, does have difficulty swallowing. PAST MEDICAL HISTORY: Significant for hyperthyroidism, hypertension, goiter, hyperlipidemia. ALLERGIES: SHE IS NOT ALLERGIC TO ANY MEDICATIONS. MEDICATIONS AT HOME: She is on Tapazole 5 mg daily, verapamil 120 daily, Lasix 20 mg daily, metoprolol 25 twice a day. SOCIAL HISTORY: Denies smoking or drinking. REVIEW OF SYSTEMS: GENERAL: Significant for shortness of breath and difficulty lying flat, difficulty bending her neck, difficulty swallowing. NECK: She has a large goiter occupying all front of her neck, hindering her flexion and side to side movement. HEENT: She has nonicteric sclerae. [place] conjunctivae. LUNGS: Bilateral diffusely decreased breath sound, more so on the left side. NEUROLOGIC: She is awake, alert, oriented, and able to converse, but short of breath. LABORATORY DATA: WBC is 12.0, hemoglobin 13, hematocrit 41, platelets of 345. Chemistry: Sodium 142, potassium 4.4, chloride 101, CO2 of 24, BUN 36, creatinine 1.0, blood sugar of 180, lactic acid 2.9, AST 40. BNP 772. TSH is 0.03. ASSESSMENT: 1. Large left pleural effusion. 2. Congestive heart failure. 3. Symptomatic large goiter causing dysphagia. 4. Hyperthyroidism. PLAN: The patient is currently on verapamil. We will continue that. She is on Lasix and potassium. She is on metoprolol. We gave her Xopenex, and has been started on antibiotics, awaiting Dr. Sebastian corey's input for thoracentesis. The patient is demanding that if her granddaughter who is a nurse accompany her during the procedure, she will go. So her procedure is scheduled for tomorrow morning. Diane Owen MD
--- NOTE | 2017-08-31 23:12 | CON ---
DATE: 08/31/2017 REFERRING PHYSICIAN: Diane Owen MD REASON FOR CONSULT: Cough, shortness of breath, large pleural effusion. HISTORY OF PRESENT ILLNESS: This is an 86-year-old female known to me from previous admission, has a history of large goiter compressing on the trachea with shortness of breath; also has a history of hypertension, hypothyroid, cannot sleep flat, has a large left pleural effusion. CT of the abdomen suggested of metastatic disease in the omentum. Last admission, she was made DNI and she refused any of the workup including diagnostic testing, understanding that she could have a cancer. I was called by the granddaughter over the weekend to order oxygen for home. After explanation that cannot do so without documenting for oxygen and a paper trail, she came into the emergency room. She has a cough, sputum production, short of breath sitting up, has a stridor. No abdominal pain. No leg pain or leg swelling. PAST MEDICAL HISTORY: Large goiter, hypothyroid, hypertension. FAMILY HISTORY: No significant cardiopulmonary disease reported. SOCIAL HISTORY: Nonsmoker, nondrinker. ALLERGIES: NONE KNOWN. MEDICATIONS: Presently, she is on Calan SR 180 mg daily, Lasix 40 mg daily, potassium 10 mEq daily, Tapazole 5 mg daily, Toprol XL 25 mg twice a day. She did receive Zosyn one dose. REVIEW OF SYSTEMS: No headache. No rhinitis. Has cough, shortness of breath, stridor. No chest pain. No nausea, no vomiting, no diarrhea. No dysuria. PHYSICAL EXAMINATION: GENERAL: Sitting up in bed, struggling with the breathing, has a stridor on supplement oxygen. VITAL SIGNS: Temperature is 98, heart rate is 94, blood pressure is 135/85, pulse ox 94% on 3 L nasal cannula at room air, pulse ox dropped down to 88, she get really short of breath and was placed back on nasal cannula. HEENT: Moist mucous membrane. Crowded airway. Has a huge goiter compressing the trachea with inspiratory and expiratory wheezing. LUNGS: Decreased breath sounds at the left lung. HEART: S1 and S2. ABDOMEN: Soft, nontender, nondistended. EXTREMITIES: Not much edema. NEUROLOGIC: Awake and follows simple command with mild to moderate distress. LABORATORY DATA: Shows hemoglobin 13.0, hematocrit 41.2, WBC 12.0, platelet is 345. INR 1.26. PTT is 25. Blood gas shows which is VBG pH is 7.3, pCO2 of 49, O2 is 44 nasal cannula. Sodium 142, potassium 4.4, chloride 101, bicarbonate 24, BUN 36, creatinine is 1.0, glucose 180, calcium is 9.8, total bili 1.2. Lactic acid is 2.9, AST 40, ALT 45, alk phos is 67, troponin 0.02. Albumin is 4.0. proBNP 772. TSH 0.03. Had a chest x-ray done in the ER on admission, which shows complete opacification of the left lung. IMPRESSION AND PLAN: Progressive respiratory deterioration pending respiratory failure with a huge goiter compressing the trachea and also white out left lung secondary to fluid. History of hypertension, hyperthyroidism. Case discussed with Dr. Nicolas. Spoke to family at the bedside. Spoke to the patient in detail. Spoke to nursing staff. Her pulse ox at room had dropped out to 88 and she was very short of breath and placed back on nasal cannula. We will add antibiotics, IV steroids, inhaled bronchodilators. The patient finally agreed to have a thoracentesis done not only diagnostic, but also for therapeutic purposes. She is willing to go through thoracentesis has a granddaughter who is a nurse and says that thoracentesis is only done while she is sitting up. Overall poor prognosis. We are probably looking into metastatic and some sort of cancer most likely ovarian origin. Overall poor prognosis. Continue supportive care. Thank you and we will follow with you. Judith Tipton MD
--- NOTE | 2017-09-01 06:10 | CP.PCM.PN ---
Subjective - Date & Time of Evaluation Date of Evaluation: 09/01/17 Time of Evaluation: 06:09 - Subjective Subjective: Nurse calls and tells that patient does not feel well, Iis sob,wants to go home. 98% on 3L/min. 120/83. 86 per min. 97.5*F. She is forthoracentesis ,refused for it , now she is ready for it today. Medical record was reviewed. She is here with large goitre, pleural effusion. Objective - Vital Signs/Intake and Output Vital Signs (last 24 hours): Temp Pulse Resp BP Pulse Ox 97.5 F L 102 H 18 133/80 95 09/01/17 00:01 09/01/17 02:00 09/01/17 00:01 09/01/17 00:01 09/01/17 00:01 Intake and Output: 08/31/17 09/01/17 18:59 06:59 Intake Total 600 180 Output Total 50 0 Balance 550 180 - Medications Medications: Current Medications Furosemide (Lasix) 40 mg IVP DAILY [facility] Last Admin: 08/31/17 09:26 Dose: 40 mg Levalbuterol HCl (Xopenex) 0.63 mg IH TIDRESP [facility] Last Admin: 08/31/17 19:00 Dose: 0.63 mg Methimazole (Tapazole) 5 mg PO DAILY [facility] Last Admin: 08/31/17 09:26 Dose: 5 mg Methylprednisolone (Solu-Medrol) 40 mg IVP Q12 [facility] Last Admin: 08/31/17 22:41 Dose: 40 mg Metoprolol Succinate (Toprol Xl) 25 mg PO BID [facility] Last Admin: 08/31/17 20:45 Dose: 25 mg Potassium Chloride (Potassium Chloride Oral Soln) 10 meq PO DAILY [facility] Last Admin: 08/31/17 10:31 Dose: Not Given Verapamil HCl (Calan Sr Tab) 180 mg PO DAILY [facility] - Labs Labs: PT 14.4 SECONDS (9.4-12.5) H 08/30/17 20:20 INR 1.26 (0.93-1.08) H 08/30/17 20:20 APTT 25.3 Seconds (25.1-36.5) 08/30/17 20:20 - Constitutional Appears: Well, No Acute Distress, Agitated - Head Exam Head Exam: ATRAUMATIC, NORMAL INSPECTION, NORMOCEPHALIC - Eye Exam Eye Exam: Normal appearance - ENT Exam ENT Exam: Normal External Ear Exam Additional comments: Large goitre. - Neck Exam Neck Exam: Normal Inspection - Respiratory Exam Respiratory Exam: Respiratory Distress (Mild.) - Cardiovascular Exam Cardiovascular Exam: absent: JVD - GI/Abdominal Exam GI & Abdominal Exam: absent: Distended - Rectal Exam Rectal Exam: Deferred - Exam Additional comments: Deferred. - Extremities Exam Extremities Exam: Normal Inspection - Back Exam Back Exam: NORMAL INSPECTION - Neurological Exam Neurological Exam: Alert, Oriented x3 - Psychiatric Exam Psychiatric exam: Normal Affect, Normal Mood - Skin Skin Exam: Normal Color Assessment and Plan - Assessment and Plan (Free Text) Assessment: Dyspnea. Large goitre. Pleural effusion-Left. Anxious. HTN. Hypothyroidism. Plan: Reassurance. Thoracentesis.
[2017-09-01] MEDS: Levalbuterol 0.63 MG/3 ML Inhal Soln UD IH SCH ×3 (08:06→20:43)
[2017-09-01] MEDS: Verapamil 180 mg ER Tab PO SCH (09:10)
[2017-09-01] MEDS: Metoprolol Succinate 25 mg XL Tab PO SCH ×4 (09:10→17:25)
[2017-09-01] MEDS: methIMAzole 5 MG TAB PO SCH (09:10)
[2017-09-01] MEDS: Potassium Chloride 20 mEq/15 ml LIQ UD PO SCH ×2 (09:10→09:16)
[2017-09-01] MEDS: MethylPREDNISolone 40 mg Vial IVP SCH ×2 (09:11→21:56)
[2017-09-01 09:18] LABS: GRAN # 11.93 (1.4-6.5); GRAN % 87.4 % (50.0-68.0); HEMOGLOBIN 13.1 g/dL (12.0-16.0); MEAN CELL VOLUME 91.2 fl (80.0-105.0); MEAN CORPUSCULAR HEMOGLOBIN 28.2 pg (25.0-35.0); MEAN PLATELET VOLUME 10.8 fl (7.0-11.0); MONO # 0.8 (0.1-0.6); MONO % 5.6 % (1.0-6.0); RBC 4.64 10^6/uL (3.5-6.1); RED CELL DISTRIBUTION WIDTH 14.1 % (11.5-14.5); WHITE BLOOD COUNT 13.7 10^3/ul (4.5-11.0)
[2017-09-01 09:28] LABS: ALB/GLOB RATIO 1.2 (1.1-1.8); ALBUMIN 4.2 g/dL (3.0-4.8); CALCIUM 10.1 mg/dL (8.4-10.5); MAGNESIUM 2.8 mg/dL (1.7-2.2)
--- NOTE | 2017-09-01 15:08 | PN ---
DATE: SUBJECTIVE: Patient is an 86-year-old who came in with increasing shortness of breath with scanty cough, unable to lie flat, has some difficulty swallowing. Scheduled to have thoracentesis done today by Dr. Sebastian Pennington. PHYSICAL EXAMINATION GENERAL: She looks exhausted, short of breath. VITAL SIGNS: She is afebrile. Pulse 125, respirations 20, blood pressure 131/79. LUNGS: Bilateral diffusely decreased breath sounds. ABDOMEN: Soft, nontender. No rebound. No guarding. NEUROLOGIC: Patient is awake, alert, oriented, and able to communicate. EXTREMITIES: Bilateral legs, no edema. LABORATORY DATA: WBC 13.7, hemoglobin 13, hematocrit 42, and platelet 321,000. Chemistry: Sodium 145, potassium 4.8, chloride 102, CO2 24, BUN 64, creatinine 2.9, blood sugar of 209, phosphorus 6.2, total bilirubin 1.1. ASSESSMENT AND PLAN 1. Large left pleural effusion. 2. Congestive heart failure. 3. Hyperthyroidism. 4. Symptomatic goiter. 5. Dysphagia. 6. Chronic atrial fibrillation. PLAN: The patient will get thoracentesis today. Discussed with the patient's granddaughter Kathryn and explained about the effusion, it could be malignant, could be transudate and we might have to get CT of the abdomen and pelvis. She states that her grandma had thoracentesis done, she will try to convince her for the CT of the abdomen and pelvis; otherwise, we will leave as it is. I will reevaluate the patient in the morning. Diane Owen MD
--- NOTE | 2017-09-01 18:47 | PN ---
DATE: 09/01/2017 CARDIOLOGY FOLLOWUP SUBJECTIVE: The patient is dyspneic at rest. PHYSICAL EXAMINATION: VITAL SIGNS: Blood pressure is 138/83, the heart rate varies from 70s to 110. NECK: Negative JVD. The goiter is unchanged. LUNGS: Decreased breath sounds. HEART: Reveals S1, S2. EXTREMITIES: Without change. LABORATORY DATA: White count is up to 13.7. Chemistries, BUN and creatinine are 64 and 2.9. IMPRESSION: 1. Pleural effusion. 2. Marked goiter. 3. Sinus tachycardia. 4. Dyspnea. 5. Dysphagia. 6. Chronic atrial fibrillation. 7. Hypertension. PLAN: Given these findings, the patient again had refused thoracentesis. I had an extensive discussion with family about the risks of the patient's respiratory compromise. She is at high risk for respiratory arrest. Sebastian Nicolas MD
--- NOTE | 2017-09-02 00:28 | PN ---
DATE: 09/01/2017 PULMONARY PROGRESS NOTE REFERRING PHYSICIAN: Diane Owen MD. SUBJECTIVE: She is lying in the bed, lethargic, arousable, follows simple commands. Family is around, there are about 15 people in the room. Whole day events noted. She is cold and clammy, struggling with the breathing. No chest pain. No nausea. No vomiting. No diarrhea. OBJECTIVE: GENERAL: Lethargic, arousable, oriented x3. Has a stridor, inspiratory and expiratory with a huge goiter compressing on the neck. LUNGS: on the left lung. HEART: S1 and S2. ABDOMEN: Soft and nontender. No organomegaly. EXTREMITIES: No edema. NEUROLOGICAL: Lethargic, arousable, follows commands. MEDICATIONS: She is on Calan 180 mg daily, Lasix 40 mg daily, potassium 10 mEq daily, Solu-Medrol 40 mg twice a day, Tapazole 5 mg daily, Toprol XL 25 mg twice a day, and Xopenex inhaler 3 times a day. LABORATORY DATA: Shows hemoglobin 13.1, hematocrit 42.3, WBC 13.7, platelet count is 321. Sodium 145, potassium 4.8, chloride 102, bicarbonate 24, BUN 64, creatinine 2.9, glucose 209, calcium is 10.1, phosphorus 6.2, magnesium 2.8. Total bili 1.1, AST 41, ALT 41, alk phos is 71, albumin is 4.2. Microbiology: Blood cultures have been negative. IMPRESSION AND PLAN: Respiratory failure with combination of huge goiter pushing on the upper airway, also whiteout left lung, probably secondary to malignant effusion. He has inspiratory and expiratory stridor, renal failure. The patient clearly expressed she does not want to be intubated. She also understands it is going to be very difficult emergency intubation. She also clearly refused she does not want thoracentesis done. I had long discussion with the family and answered all of their questions. The patient wishing to just sleep and rest. So, orders given to nursing staff to put her as a DNI but she still wants to have a chest compression done. I also spoke to the respiratory therapist to place her on high-flow nasal cannula in an effort to make her comfortable. I think overall she has very poor prognosis, will not change much even by doing thoracentesis. As expected, she may have metastatic disease. So, we should continue support her according to her wishes and help the family through this hard and tough time. Thank you and we will follow with you. Judith Tipton MD
[2017-09-02 01:14] VITALS: TEMP 97; O2SAT 92
[2017-09-02] MEDS: Levalbuterol 0.63 MG/3 ML Inhal Soln UD IH SCH ×2 (08:03→15:35)
[2017-09-02] MEDS: methIMAzole 5 MG TAB PO SCH (10:33)
[2017-09-02] MEDS: Metoprolol Succinate 25 mg XL Tab PO SCH (10:33)
[2017-09-02] MEDS: Potassium Chloride 20 mEq/15 ml LIQ UD PO SCH (10:33)
[2017-09-02] MEDS: Verapamil 180 mg ER Tab PO SCH (10:33)
[2017-09-02] MEDS: MethylPREDNISolone 40 mg Vial IVP SCH (10:46)
--- NOTE | 2017-09-02 10:50 | PQF RESP ---
This form is a permanent part of the medical record Dr. Tipton, Your PN of 09/01/17 lists respiratory failure and renal failure as diagnoses. Both require more specificity in terms of severity, are they acute, chronic, acute on chronic. Please document. Clarification of your documentation is requested to better reflect the severity of illness and intensity of treatment of your patient. Indicators present [x] Use of Home Oxygen [x] Respiratory rate > 28 or <8/min (Labored respirations) [] PCO2 > 50 mm Hg or (Hypercapnia) (somnolence) [] PaO2 < 60 mm Hg or Hypoxemia (confusion) [] ABG blood gas pH < 7.35 [] SpO2 < 90% sat on Room Air [] Cyanosis [x] Unable to Speak in Full Sentences [x] Use of Accessory Muscles / Tripoding [x] Wheezing and stridor [] Other: [] Location in the medical record that reflects the above clinical findings: [] Treatment Provided: [] PHYSICIAN'S RESPONSE Based on your medical judgment of the clinical indicators outlined above, are you treating this patient for a known or suspected: [] Acute Respiratory Failure (hypoxia or hypercapnia) [] Chronic Respiratory Failure (hypoxia or hypercapnia) [] Acute on Chronic Respiratory Failure (hypoxia or hypercapnia) [] Hypoxemia please specify ACUTE, CHRONIC or ACUTE on CHRONIC [] Other []_ [] If unable to determine, please check the box, sign and date. Present On Admission (POA) Indicator: [] Present at the time of admission [] Not present at the time of admission [] Clinically Undetermined In responding to this query, please exercise your independent professional judgment. The fact that a question is asked does not imply that any particular answer is desired or expected. Thank you for your clarification on this documentation. If you have any questions please call:[ ] * Thank you, [ ]Emily Arias [facility] #[id number] media/instructional designer Chronic Respiratory Failure Description: Respiratory failure is a syndrome in which the respiratory system fails in one or both of its gas exchange functions: oxygenation and carbon dioxide elimination. In theory, respiratory failure is defined as a Pa02 value of <60 mm/Hg or a PaC02 of >50 mm/Hg. However, these values may be affected by renal compensation. Respiratory failure may be acute or chronic. While acute respiratory failure is characterized by life-threatening derangement in arterial blood gases and acid-base balance, the manifestations of chronic respiratory failure are less dramatic and may not be as readily apparent. Classifications: Respiratory failure may be classified as hypoxemic (usually characterized by Pa02 of <60 mm/Hg) or hypercapnic (usually characterized by PaC02 >50 mm/Hg) and either may be acute or chronic. Chronic hypercapnic respiratory failure develops over time and allows for renal compensation and an increase in bicarbonate concentration; therefore the pH is usually only slightly decreased. The distinction between acute and chronic hypoxemic respiratory failure cannot readily be made on the basis of ABGs; the clinical markers of chronic hypoxemia, such as polythycemia or cor pulmonale suggest a long standing disorder (chronic hypoxemic respiratory failure). Clinical Indicators: dyspnea at rest or "chronic" dyspnea, concomitant conditions such as polycythemia or cor pulmonale, requirement for continuous oxygen support, forced expiratory volume in one second (FEV1) of 49 or less, pursed lip breathing, "barrel" chest, hyperinflation by CXR, muscle wasting, malnutrition/obesity, poor exercise capacity, peripheral edema, description as a "blue bloater" (usually associated with chronic, obstructive bronchitis) or "pink puffer" (usually associated with emphysema) Risks: Chronic Hypoxemic Respiratory Failure - COPD, pulmonary fibrosis, asthma , pulmonary arterial hypertension, granulomatous lung diseases, congenital heart disease, bronchiectasis, kyphoscoliosis, obesity; Chronic Hypercapnic Respiratory Failure - COPD, severe asthma, myasthenia gravis, polyneuropathy, polio, head and cervical spine injuries, obesity hypoventilation syndrome. Treatment: supplemental oxygen, bronchodilators, corticosteroids, adequate nutrition, lung transplant References: Am. J. Respir. Crit. Care Med. "Global Strategy for the Diagnosis, Management and Prevention of COPD: GOLD Exectuive Summary," Parminder Patel Anzueto - 2007; Proceedings of the [place] [employer] "Mechanisms and Measurements of Dyspnea in COPD," Valentin - 2006; WebMD; Respiratory Failure, Santino Smith MD - 01/2006; Artem's Principles of Internal Medicine, 17th edition. Acute Respiratory Failure Acute Respiratory Failure indicators include: ~Respirations >28 ~Air hunger ~Use of accessory muscles of respiration ~Inability to speak in full sentences Cyanosis ~Pulse ox <90% RA or <95% on O2 pH <7.35 or >7.45 ~pO2 < 60 mm Hg (or 10mm below COPD patient's baseline) ~pCO2 >50mm Hg (or 10mm above COPD patient's baseline) "Respiratory failure may be assigned as a principal diagnosis when it is the condition established after study to be chiefly responsible for occasioning admission to the hospital. The fact that the respiratory failure was managed without intubation and mechanical ventilation does not preclude its use." [facility], 3rd Qtr., 1988, p. 7 MTDD
--- NOTE | 2017-09-02 11:53 | CP.PCM.CON ---
History of Present Illness - History of Present Illness History of Present Illness: Palliative consult requested by Dr Angela Owen Reason: Goals of care/comfort care 86 year old female with history of HTN, hypothyroid, large goiter who presented with shortness of breath. CT scan from previous admission of 08/25 revealed large left pleural effusion, findings suspicious of omental / peritoneal metastatic disease, massive thyroid goiter which encircles and compresses the upper trachea. She is now DNR/DNI PMHx: HTN , hypothyroid, goiter,pleural effusion. Social History: Non smoker, no alcohol or drug use. Lives independently Family History: Non contributory Advance Care Planning: She does not have an advanced directive. She is DNR/DNI. Review of Systems: As per HPI, unable to obtain complete review as patient is obtunded Past Patient History - Infectious Disease Hx of Infectious Diseases: None - Past Social History Smoking Status: Never Smoked - CARDIAC Hx Cardiac Disorders: Yes Hx Cardia Arrhythmia: Yes Hx Hypertension: Yes - PULMONARY Hx Respiratory Disorders: No - NEUROLOGICAL Hx Neurological Disorder: No - HEENT Hx HEENT Problems: No - RENAL Hx Chronic Kidney Disease: No - ENDOCRINE/METABOLIC Hx Endocrine Disorders: Yes Hx Hyperthyroidism: Yes - HEMATOLOGICAL/ONCOLOGICAL Hx Blood Disorders: No - INTEGUMENTARY Hx Dermatological Problems: No - MUSCULOSKELETAL/RHEUMATOLOGICAL Hx Musculoskeletal Disorders: No Hx Falls: Yes - GASTROINTESTINAL Hx Gastrointestinal Disorders: No - GENITOURINARY/GYNECOLOGICAL Hx Genitourinary Disorders: No - PSYCHIATRIC Hx Psychophysiologic Disorder: No Hx Depression: No Hx Emotional Abuse: No Hx Physical Abuse: No Hx Substance Use: No - SURGICAL HISTORY Hx Surgeries: No (denies) Meds Allergies/Adverse Reactions: Allergies Allergy/AdvReac Type Severity Reaction Status Date / Time No Known Allergies Allergy Verified 08/30/17 19:51 - Medications Medications: Current Medications Furosemide (Lasix) 40 mg IVP DAILY [facility] Last Admin: 09/02/17 10:33 Dose: Not Given Levalbuterol HCl (Xopenex) 0.63 mg IH TIDRESP [facility] Last Admin: 09/02/17 08:03 Dose: 0.63 mg Methimazole (Tapazole) 5 mg PO DAILY [facility] Last Admin: 09/02/17 10:33 Dose: Not Given Methylprednisolone (Solu-Medrol) 40 mg IVP Q12 [facility] Last Admin: 09/02/17 10:46 Dose: 40 mg Metoprolol Succinate (Toprol Xl) 25 mg PO BID [facility] Last Admin: 09/02/17 10:33 Dose: Not Given Potassium Chloride (Potassium Chloride Oral Soln) 10 meq PO DAILY [facility] Last Admin: 09/02/17 10:33 Dose: Not Given Verapamil HCl (Calan Sr Tab) 180 mg PO DAILY [facility] Last Admin: 09/02/17 10:33 Dose: Not Given Physical Exam - Constitutional Appears: Chronically Ill - Head Exam Head Exam: NORMAL INSPECTION - Eye Exam Eye Exam: Normal appearance Additional comments: sluggish accommodation - ENT Exam ENT Exam: Mucous Membranes Moist - Neck Exam Additional comments: large goiter, tracheal deviation - Respiratory Exam Respiratory Exam: Accessory Muscle Use, Decreased Breath Sounds Additional comments: irregular breathing pattern - Cardiovascular Exam Cardiovascular Exam: Tachycardia, +S1 - GI/Abdominal Exam GI & Abdominal Exam: Diminished Bowel Sounds, Distended, Soft - Extremities Exam Additional comments: all extremities cold, mottling of lower extremities - Back Exam Back exam: NORMAL INSPECTION - Neurological Exam Neurological exam: Altered - Skin Skin Exam: Cyanosis, Dry, Pallor - Additional Findings Additional findings: Palliative performance scale rating 20 % Results - Vital Signs Recent Vital Signs: Last Vital Signs Temp 97 F L 09/02/17 00:01 Pulse 96 H 09/02/17 05:21 Resp 34 H 09/02/17 11:34 BP 98/35 L 09/02/17 00:01 Pulse Ox 92 L 09/02/17 00:01 - Labs Result Diagrams: 09/01/17 08:40 09/01/17 08:40 Assessment & Plan - Assessment and Plan (Free Text) Assessment: 86 year old female with history of goiter, HTN hypothyroid who was admitted with shortness of breath, pleural effusion also found to have omentum/ peritoneal changes with are suspicious for metastatic disease. The patients family is at bedside She is unresponsive, her extremities are cold , feet are mottled. She is tachypneic, with accessory muscle use. Family informed of patients condition and that she is likely nearing end of life. Options for comfort care offered. Waiting for another family member to arrive before making decisions regarding comfort care.Psychosocial support ,end of life counseling given. Time spent with family in end of life counseling, 30 minutes Plan: Palliative support End of life counseling
[2017-09-02 12:00] VITALS: BP 82/53; PULSE 65; RESP 16
--- NOTE | 2017-09-02 13:14 | CP.PCM.PRO ---
Pronouncement of Note - Clinical Findings Physical Exam: No Response Verbal/Painful Stimuli, Absent Peripheral Pulses{ Carotid & Femoral}, Absent Heart & Breath Sounds, No Pupillary Light Reflex, No Corneal Reflex, Pupils Fixed & Dilated - Pronouncement Time Time of Pronouncement of : 13:00 - Notifications Pronouncement Notifications: Family Notified, Atending Notified [employer] Machine Operator Notified: Yes - Autopsy Autopsy Requested: No - [place] [id number]
--- NOTE | 2017-09-02 16:13 | PN ---
DATE: SUBJECTIVE: The patient is an 86 years old, seen and examined, seems to be lethargic and sleepy, on high-flow oxygen, does not seem to be in any distress. PHYSICAL EXAMINATION: VITAL SIGNS: She is afebrile, pulse 100, respirations 34, and blood pressure of 98/35. LUNGS: Bilateral poor respiratory effort. Decreased breath sounds in both bases, left more than the right. HEART: S1 and S2 audible, tachycardic. ABDOMEN: Soft, obese, and nontender. No rebound. No guarding. NEUROLOGIC: She is sleepy, lethargic. She has large goiter, unable to bend her neck, bending and swallowing also. ASSESSMENT AND PLAN: 1. Large pleural effusion. 2. Symptomatic goiter. 3. History of hyperthyroidism. 4. Respiratory insufficiency. 5. Pleural effusion, etiology unclear, is it related to congestive heart failure or malignant effusion. The patient was also scheduled to have thoracentesis done, but she refused yesterday. Initially, they expressed that she wanted to be DNR and DNI, but later on they declined and wanted to be full code. Pulmonology spoke to the family again this morning and they wanted to be DNR and DNI again. So, plan at this point is to keep her comfortable. She is on high-flow oxygen. She is on IV steroids. We will hold of p.o. antibiotics and prognosis is extremely poor. . Diane Owen MD
--- NOTE | 2017-09-02 16:37 | PN ---
DATE: 09/02/2017 PULMONARY PROGRESS NOTE REFERRING PHYSICIAN: Diane Owen MD. SUBJECTIVE: She is lying in the bed. Family is at bedside. Struggling with the breathing. Awake, very lethargic. Does not respond much. Has a stridor. No vomiting. No hematuria. No diarrhea. Leg swelling reported. PHYSICAL EXAMINATION: GENERAL: In no acute distress. VITAL SIGNS: Temperature is 98, heart rate is 96, respiratory rate is 24 to 30, blood pressure 98/35, pulse ox 92% on high flow of 50% nasal oxygen. HEENT: Moist mucous membranes. Crowded airway. Has a huge goiter compressing the airways. LUNGS: Have a poor airflow. HEART: S1 and S2. ABDOMEN: Soft, nontender, nondistended. EXTREMITIES: There is no edema. NEUROLOGIC: Very lethargic. MEDICATIONS: Reviewed. Solu-Medrol 40 mg IV q. 12 hours is being given, could not take any p.o. medication because of lethargy. LABORATORY DATA: Review shows hemoglobin 13.1, hematocrit 42.3, WBC 13.7, platelet count is 321. Sodium 145, potassium 4.8, chloride 102, bicarbonate 24, BUN 64, creatinine 2.9, glucose 209. Lactic acid 3.1, phosphorus 6.2, magnesium 2.8, total bilirubin 1.1. AST 41, ALT 41, alkaline phosphatase is 71, albumin is 4.2. Microbiology: Blood culture has been negative. 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 I spoke to the patient's family at bedside. All their questions answered. As per my last night discussion and this morning discussion, the patient is DNR and DNI. At present, family does not want any comfort care, especially with medications. For now, continue high-flow oxygen. We will discontinue Solu-Medrol, not doing anything at this point. Continue supportive care, palliative followup, psych social worker followup. Continue family support. Thank you and we will follow with you. Judith Tipton MD [facility] # [id number]
== END 2017-09-02 13:00 | DRG 180 ==
LOC: ED 19:39 → ERH 23:35 → 2RSO 08-31 01:13 → OBSVTOIN 08-31 15:25
PROVIDERS: ADMIT Internal Medicine; ATTEND Internal Medicine
DX: J91.0 Malignant pleural effusion (principal); J96.00 Acute respiratory failure, unspecified whether with hypoxia or hypercapnia; I50.9 Heart failure, unspecified; I11.0 Hypertensive heart disease with heart failure; N19 Unspecified kidney failure; E05.00 Thyrotoxicosis with diffuse goiter without thyrotoxic crisis or storm; R13.10 Dysphagia, unspecified; I48.2 Chronic atrial fibrillation; E03.9 Hypothyroidism, unspecified; E78.5 Hyperlipidemia, unspecified; R63.3 Feeding difficulties; Z51.5 Encounter for palliative care; Z66 Do not resuscitate